=== PATIENT | female | born 1980 | race Caucasian/White ===

== ENCOUNTER 2017-06-15 16:41 | Outpatient (CLI) | payer BC | END 2017-06-15 16:42 | disposition home or self-care (01) | LOC: LABBT 16:41 | PROVIDERS: ATTEND Neurological Surgery | DX: Z01.812 Encounter for preprocedural laboratory examination (principal); M54.12 Radiculopathy, cervical region ==

== ENCOUNTER 2017-07-07 16:09 | Outpatient (CLI) | payer BC ==
--- NOTE | 2017-07-07 16:34 | RAD ---
CERVICAL SPINE FOUR VIEWS: 07/07/17 HISTORY: Neck pain. Prior surgery. FINDINGS: Anterior fixation hardware is in place at the C5-6 level without perihardware lucency. Metallic marke rs associated with interbody fusion material are within the confines of the disc space at the postope rative level. There is disc space narrowing at the C2-3 level. At the C4-5 level, there is disc space narrowing, mi nimal degenerative retrolisthesis, and osteophytosis that is most pronounced. Vertebral body heights are maintained. Cervicothoracic junction is intact. IMPRESSION: 1. Anterior operative fixation of the lower cervical spine without evidence of hardware complica tion. 2. Arthritic changes of the cervical spine are most pronounced at the C4-5 level, as detailed ab elliott. POS: [facility]
== END 2017-07-07 16:10 | disposition home or self-care (01) ==
LOC: TBSIIMAG 16:09
PROVIDERS: ATTEND Physician Assistant
DX: M54.2 Cervicalgia (principal); M47.812 Spondylosis without myelopathy or radiculopathy, cervical region; Z98.890 Other specified postprocedural states
CPT/HCPCS: 72040

== ENCOUNTER 2017-08-10 16:03 | Outpatient (CLI) | payer BC ==
--- NOTE | 2017-08-10 17:35 | RAD ---
FOUR VIEWS OF THE CERVICAL SPINE 08/10/17 COMPARISON: 07/07/17 HISTORY: Re-evaluate cervical spine following surgery, cervical spondylosis. FINDINGS: Anterior discectomy and fusion hardware is present at C5-6, stable. At C3-4 and C4-5, there is disc s pace narrowing with degenerative end plate change and mild anterior osteophyte formation, stable as w ell. No prevertebral soft tissue swelling is noted. There is no significant anterolisthesis or retrol isthesis. Open mouth odontoid view demonstrates a normal C1-2 articulation. Dens appears grossly unre markable on the provided Fuchs' view. No acute osseous abnormality is seen. IMPRESSION: Stable postoperative and degenerative changes within the cervical spine. POS: [facility]
== END 2017-08-10 16:04 | disposition home or self-care (01) ==
LOC: TBSIIMAG 16:03
PROVIDERS: ATTEND Neurological Surgery
DX: M47.812 Spondylosis without myelopathy or radiculopathy, cervical region (principal); Z98.1 Arthrodesis status
CPT/HCPCS: 72040

== ENCOUNTER 2018-03-15 11:02 | Outpatient (CLI) | payer BC ==
--- NOTE | 2018-03-15 12:51 | ULT ---
RIGHT UPPER QUADRANT ABDOMINAL ULTRASOUND AND HEPATIC ULTRASOUND: HISTORY: Elevated LFTs. TECHNIQUE: Multiplanar, ward scale, and color Doppler images were obtained in a right upper quadrant abdominal u ltrasound. Spectral analysis of the Doppler waveforms of the hepatic and splenic vasculature were pe rformed. FINDINGS: The liver is normal in echogenicity without focal lesions or intrahepatic ductal dilatation. The gal lbladder is normal without stones, sludge, gallbladder wall thickening, or pericholecystic fluid. Th e common bile duct is normal measuring 3 mm. Normal directional flow was seen within the hepatic and splenic vasculature which also demonstrate no rmal waveforms. The visualized portions of the pancreas are unremarkable. The spleen is normal in echogenicity witho ut focal lesions and measures 12.0 cm in length. The visualized portions of the pancreas are unremar kable. IMPRESSION: No significant right upper quadrant abdominal abnormality. POS: [facility]
== END 2018-03-15 11:03 | disposition home or self-care (01) ==
LOC: SCSULT 11:02
PROVIDERS: ATTEND Internal Medicine Gastroenterology
DX: R10.11 Right upper quadrant pain (principal); R74.0 Nonspecific elevation of levels of transaminase and lactic acid dehydrogenase [LDH]; R63.4 Abnormal weight loss; D49.7 Neoplasm of unspecified behavior of endocrine glands and other parts of nervous system; Z83.79 Family history of other diseases of the digestive system
CPT/HCPCS: 76705

== ENCOUNTER 2018-07-14 14:37 | Outpatient (CLI) | payer BC | END 2018-07-14 14:38 | disposition home or self-care (01) | LOC: BICMAMMO 14:37 | PROVIDERS: ATTEND Obstetrics & Gynecology | DX: Z12.31 Encounter for screening mammogram for malignant neoplasm of breast (principal); Z80.3 Family history of malignant neoplasm of breast | CPT/HCPCS: 77063; 77067 ==

== ENCOUNTER 2018-11-18 14:16 | Outpatient (CLI) | payer BC ==
--- NOTE | 2018-11-18 14:42 | RAD ---
Right ankle 2 views INDICATION: Unspecified ankle and foot pain without injury. This is ongoing for 5 days. Pain is predo minantly around the lateral and posterior ankle as well as the base of the fifth metatarsal. FINDINGS: No acute fracture or subluxation is evident. Visualized hindfoot appears within normal limi ts. Soft tissues are normal appearing. IMPRESSION: No acute osseous abnormality demonstrated.
--- NOTE | 2018-11-18 14:47 | RAD ---
Right foot 2 views INDICATION: Pain about the right ankle and right fifth metatarsal COMPARISON: None FINDINGS: No acute fracture or subluxation is evident. The Lisfranc alignment appears within normal l imits. Soft tissues are normal appearing. Slight increased density adjacent to the second metatarsal head may reflect a small sesamoid. This could also reflect a small bone island within the second metatarsal head. IMPRESSION: No acute osseous abnormality.
== END 2018-11-18 14:17 | disposition home or self-care (01) ==
LOC: BICRAD 14:16
PROVIDERS: ATTEND Family Medicine
DX: M25.571 Pain in right ankle and joints of right foot (principal); M79.671 Pain in right foot

== ENCOUNTER 2019-07-31 15:02 | Outpatient (CLI) | payer BC ==
[2019-07-31 16:55] LABS: #Basophils 0.1 thou/uL (0.0-0.2); #Eosinphils 0.1 thou/uL (0.0-0.7); #Lymphocytes 2.7 thou/uL (1.20-3.40); #Monocytes 0.6 thou/uL (0.11-0.59); #Neutrophils 4.1 thou/uL (1.40-6.50); %Basophils 1.1 % (0.0-1.0); %Eosinophils 1.6 % (0.0-10.0); %Lymphocytes 35.3 % (21.0-51.0); %Monocytes 7.9 % (0.0-10.0); %Neutrophils 54.1 % (42.0-75.0); Hemoglobin 13.6 g/dL (12.0-16.0); Mean Corpuscular HGB CONC 32.8 g/dL (32.0-36.0); Mean Corpuscular Hemoglobin 26.5 pg (27.0-31.0); Mean Corpuscular Volume 80.8 fL (78.0-98.0); Platelet Count 309 thou/uL (130-400); RBC Distribution Width 12.7 % (11.5-14.5); Red Blood Cell (RBC) Count 5.14 mill/uL (4.20-5.40); White Blood Cell (WBC) Count 7.6 thou/uL (4.8-10.8)
[2019-07-31 17:25] LABS: Anion Gap 12 mmol/L (10-20); BUN (Urea Nitrogen) 10 mg/dL (7.0-18.7); Calc. Creatinine Clearance 0 mL/min (70-130); Calcium 9.9 mg/dL (7.8-10.44); Carbon Dioxide 27 mmol/L (22-29); Chloride 102 mmol/L (98-107); Estimated GFR-MDRD 76; Glucose 81 mg/dL (70-105); Potassium 4.1 mmol/L (3.5-5.1); Sodium 137 mmol/L (136-145)
== END 2019-07-31 15:03 | disposition home or self-care (01) ==
LOC: LABBT 15:02
PROVIDERS: ATTEND Surgery
DX: Z01.812 Encounter for preprocedural laboratory examination (principal); N63.20 Unspecified lump in the left breast, unspecified quadrant
CPT/HCPCS: 80048; 85025

== ENCOUNTER 2019-08-02 06:23 | Day surgery (SDC) | payer BC ==
[2019-07-31 16:52] VITALS: BMI 31.6
[2019-08-02] MEDS ORDERED: Sodium Bicarbonate 2.5 MEQ/5 ML VIAL ONE (07:02)
--- NOTE | 2019-08-02 09:33 | ULT ---
Ultrasound-guided left breast needle localization: DATE: 08/02/2019 HISTORY: 39-year-old female with left retroareolar palpable lump. Original workup performed at [facility]. TECHNIQUE: Signed informed consent obtained. Left breast prepped and draped in usual sterile fashion. 25-gauge n eedle used to apply buffered lidocaine. 20-gauge 3 cm [place] needle advanced under ultrasound guidance from upper outer approach, into the area located superficially directly posterior to the are rufina. Wire deployed. Patient tolerated procedure well. No complications. IMPRESSION: Ultrasound-guided needle localization
[2019-08-02] MEDS ORDERED: Lidocaine 1% w/Epinephrine 1:100K 20 ML VIAL ONE (10:18)
[2019-08-02] MEDS ORDERED: Bupivacaine 0.25% HCL 30 ML VIAL ONE (10:18)
[2019-08-02] MEDS ORDERED: Fentanyl 100 MCG/2 ML VIAL ONE ×2 (10:28→12:25)
[2019-08-02] MEDS ORDERED: Midazolam HCl 2 mg/2 ml Vial ONE (10:28)
--- NOTE | 2019-08-02 12:01 | MMO ---
Radiograph surgical specimen: DATE: 08/02/2019 HISTORY: 39-year-old female status post left retroareolar breast lesion surgical excisional biopsy following u ltrasound-guided needle localization. FINDINGS: The [place] wire is present within the tissue specimen. Numerous punctate tiny microcalcific densities are present in the specimen, but this is artifact because the mammogram showed no such calcifications. Because the lesion is only visible on ultrasound, it is not possible to determine whe ther the targeted lesion is in the specimen, but it probably is unless though wire was manipulated. IMPRESSION: Status post left retroareolar surgical breast excisional biopsy.
[2019-08-02] MEDS ORDERED: PROPOFOL 200 MG/20 ML VIAL ONE (12:26)
[2019-08-02] MEDS ORDERED: Lidocaine 1% PF 5 ML VIAL ONE (12:26)
[2019-08-02] MEDS ORDERED: Ketorolac Tromethamine 30 MG/ML VIAL ONE (12:26)
[2019-08-02] MEDS ORDERED: Dexamethasone 20 MG/5 ML VIAL ONE (12:26)
[2019-08-02] MEDS ORDERED: Ondansetron PF 4 MG/2 ML Vial ONE (12:26)
[2019-08-02] MEDS ORDERED: PHENYLEPHRINE-NS 100 MCG/ML 10 ML SYRINGE ONE (12:26)
[2019-08-02] MEDS ORDERED: ePHEDrine/0.9% NaCl/PF SYRINGE 50 mg/10 ml ONE (12:26)
--- NOTE | 2019-08-02 13:55 | OP ---
DATE OF PROCEDURE: 08/02/2019 PROCEDURE PERFORMED: Left breast needle localized excisional biopsy. PREOPERATIVE DIAGNOSIS: Left breast retroareolar mass. POSTOPERATIVE DIAGNOSIS: Left breast retroareolar mass. INDICATIONS FOR PROCEDURE: Ms. Villanueva is a 39-year-old woman, who noticed a nodule in the retroareolar region of her left breast. On ultrasound, this had a suspicious appearance, and excisional biopsy was recommended due to its superficial location and small size. This can intermittently be difficult to palpate in her large breast, so needle localization was recommended. DESCRIPTION OF PROCEDURE: After informed consent was obtained, the patient was taken to the operating room and placed in supine position. A wire had been placed just anterior to the mass under ultrasound guidance in Radiology prior to the case. The patient was placed under anesthesia and prepped and draped in a standard sterile fashion including the wire and needle and the sterile prep. The wire was coming in from the lateral direction into the retroareolar area where the mass was located. Local anesthesia was infused to the areolar edge, and an incision was made. Dissection was carried down to the wire. Dissection was carried down around the wire beyond the tip excising the entire area posterior to the wire, and no point was the wire or the needle exposed in the area of concern, and there was a palpable mass in the specimen. The specimen was oriented with a long lateral short superior and looped superficial suture and was sent to specimen mammogram, where they confirmed that the area of concern had been excised. The wound was irrigated, and hemostasis was obtained using Bovie electrocautery. Additional local anesthesia was infused for postoperative pain control. The subcutaneous tissues were reapproximated with 3-0 Monocryl suture, and the skin was closed with 4-0 Monocryl suture. Dermabond dressings were placed, and once these were dry, a fluff compression dressing was placed. The patient was extubated and taken to Recovery in good condition. ESTIMATED BLOOD LOSS: Minimal. COMPLICATIONS: There were no complications. SPECIMEN: Left retroareolar mass. Job ID: [id number]
== END 2019-08-02 13:45 | disposition home or self-care (01) ==
LOC: SDC 06:23
PROVIDERS: ATTEND Surgery
PROC: 0H9U0ZX Drainage of Left Breast, Open Approach, Diagnostic (ICD-10-PCS; principal; 2019-08-02)
DX: N60.12 Diffuse cystic mastopathy of left breast (principal); F41.9 Anxiety disorder, unspecified; F32.9 Major depressive disorder, single episode, unspecified; E78.5 Hyperlipidemia, unspecified; Z79.899 Other long term (current) drug therapy; Z88.2 Allergy status to sulfonamides
CPT/HCPCS: 19285; 76098; 88307; 88341; 88342; J0690; J1100; J1885; J2001; J2250; J2405; J2704; J3010; S0020

== ENCOUNTER 2020-02-08 14:42 | Outpatient (CLI) | payer BC ==
--- NOTE | 2020-02-08 16:31 | MRI ---
MRI of thelumbar spine with and without contrast: 02/08/2020 COMPARISON:None available HISTORY:Lumbar radiculopathy, low back pain with bilateral lower extremity numbness, prior lumbar spi ne surgery TECHNIQUE: Multiplanar multisequence MR imaging of thelumbar spine with and without contrast Findings:Sagittal STIR imaging demonstrates no focal area of osseous marrow edema. There is no shane listhesis or retrolisthesis within the lumbar spine. On the basis of 5 lumbar type vertebral bodies, the conus medullaris terminates at the L1 level. T12-L1: No central canal or neural foraminal stenosis. L1-2: No central canal or neural foraminal stenosis. L2-3: No central canal or neural foraminal stenosis L3-4: No central canal or neural foraminal stenosis. L4-5: There is disc space narrowing with disc desiccation and mild disc bulge. Central annular tear. Mild bilateral facet hypertrophy. No significant central canal or neural foraminal stenosis. L5-S1: There is disc space narrowing with disc desiccation and disc bulge. Small superimposed left pa racentral and left foraminal disc protrusion. Moderate left lateral recess stenosis and severe left neural foraminal stenosis. Mild right neural foraminal stenosis. The imaged retroperitoneal structures appear unremarkable. The postcontrast imaging demonstrates no a bnormal enhancement involving the nerve roots of the cauda equina. There is mild enhancement of the anterior epidural space anteriorly/laterally at the L5-S1 level adjacent to the anterior margin of th e left S1 nerve root suggesting a degree of scar. No abnormal enhancement is seen involving the osseous structures. IMPRESSION:Degenerative changes within the lumbar spine, most prominent on the left at the L5-S1 leve l as detailed above. Probable mild scar along the anterior margin of the left S1 nerve root.
--- NOTE | 2020-02-08 16:47 | MRI ---
MRI of thecervical spine with and without contrast: 02/08/2020 COMPARISON:None available HISTORY:Neck pain, numbness, prior surgery TECHNIQUE: Multiplanar multisequence MR imaging of thecervical spine with and without contrast Findings:Anterior discectomy and fusion hardware present at the C5-6 level. The sagittal STIR imaging demonstrates no focal area of osseous marrow edema. Fusion of the occipital condyles and C1 ring noted. C2-3: No significant central canal or neural foraminal stenosis. C3-4: There is disc space narrowing and disc desiccation with mild disc bulge partially effacing the ventral thecal sac. No significant neural foraminal stenosis or central canal stenosis. Mild left neural foraminal stenosis on the basis of facet and uncovertebral osteophyte formation noted. C4-5: There is disc space narrowing with disc desiccation and mild disc bulge. There is partial effac ement of the ventral thecal sac with mild central canal stenosis. Prominent bilateral uncovertebral osteophyte formation noted with moderate/severe bilateral neural foraminal stenosis, left greater ramesh n right. C5-6: Detailed assessment is limited secondary to postoperative change. No significant central canal stenosis. Probable mild bilateral neural foraminal stenosis on the basis of facet and uncovertebral osteophyte formation, left greater than right. C6-7: There is disc space narrowing with disc desiccation and mild disc bulge partially effacing the ventral thecal sac and causing mild central canal stenosis. Bilateral uncovertebral osteophyte formation with mild bilateral neural foraminal stenosis, left greater than right. C7-T1: No significant central canal or neural foraminal stenosis. No abnormal signal intensity is identified within the cervical cord. The postcontrast imaging demonstrates no abnormal enhancement. IMPRESSION:Postoperative and degenerative changes within the cervical spine as detailed above. The mo st significant stenosis involves bilateral neural foramina at C4-5, left greater than right.
== END 2020-02-08 14:43 | disposition home or self-care (01) ==
LOC: BICMRI 14:42
PROVIDERS: ATTEND Neurological Surgery
DX: M47.26 Other spondylosis with radiculopathy, lumbar region (principal); M54.6 Pain in thoracic spine; M50.30 Other cervical disc degeneration, unspecified cervical region; M47.812 Spondylosis without myelopathy or radiculopathy, cervical region; M48.02 Spinal stenosis, cervical region; M47.27 Other spondylosis with radiculopathy, lumbosacral region; Z98.890 Other specified postprocedural states
CPT/HCPCS: 72156; 72158

== ENCOUNTER 2020-02-09 15:22 | Outpatient (CLI) | payer BC ==
[~2020-02-09 15:22] MED LIST: Magnevist 469MG/ML 20 ML VIAL ONE
--- NOTE | 2020-02-09 15:51 | RAD ---
XR Cerv Sp Ap Lat STANDARD History: Cervical disc degeneration Comparison: Cervical spine MRI prior day Findings: Moderate C3/C4 and C4/C5 degenerative disc degeneration and osteophyte formation along with C6/C7 disc space height loss. Grade 1 C4 over C5 retrolisthesis approximately 3 mm. Intact ACDF hardware. Impression: Multilevel spondylosis, greatest at C4/C5 with grade 1 degenerative retrolisthesis.
--- NOTE | 2020-02-09 16:49 | MRI ---
MRI Thoracic Spine W WO Con History: Thoracic spine pain. M [age] Comparison: Multiple prior thoracic spine MRI examinations, most recent study 2014 Findings: No marrow infiltrative process. Laminectomy change of T6-T8. Likely left hemifacetectomy at T7/T8 with adjacent scar tissue which does cause moderate neural foraminal narrowing. Mild disc desiccation at T4/T5 and T7/T8. No spinal canal narrowing. No hydronephrosis. Aortic contour is normal. Impression: 1. Findings of left hemifacetectomy changes on the left at T7/T8 with adjacent scar causing moderate neural foraminal narrowing. 2. No acute disc protrusion/bulge. No other levels of neural foraminal narrowing. 3. No spinal canal narrowing. 4. Normal signal of the cord. No abnormal enhancement. 5. No abnormal enhancing dural based mass.
== END 2020-02-09 15:23 | disposition home or self-care (01) ==
LOC: BICMRI 15:22
PROVIDERS: ATTEND Neurological Surgery
DX: M50.30 Other cervical disc degeneration, unspecified cervical region (principal); M54.6 Pain in thoracic spine; M47.812 Spondylosis without myelopathy or radiculopathy, cervical region; M43.12 Spondylolisthesis, cervical region; M48.04 Spinal stenosis, thoracic region; Z98.890 Other specified postprocedural states
CPT/HCPCS: 72040; 72157

== ENCOUNTER 2021-07-17 16:30 | Outpatient (CLI) | payer BC | END 2021-07-17 16:31 | disposition home or self-care (01) | LOC: SLEEPLAB 16:30 | PROVIDERS: ATTEND Psychiatry & Neurology Neurology | DX: G47.33 Obstructive sleep apnea (adult) (pediatric) (principal) | CPT/HCPCS: 95806 ==

== ENCOUNTER 2023-08-10 16:13 | Outpatient (CLI) | payer BC | END 2023-08-10 16:14 | disposition home or self-care (01) | LOC: BICRAD 16:13 | PROVIDERS: ATTEND Family Medicine | DX: M19.071 Primary osteoarthritis, right ankle and foot (principal); M79.89 Other specified soft tissue disorders ==

== ENCOUNTER 2023-12-08 15:01 | Outpatient (CLI) | payer BC | END 2023-12-08 15:02 | disposition home or self-care (01) | LOC: BICMRI 15:01 | PROVIDERS: ATTEND Psychiatry & Neurology Neurology | DX: R51.9 Headache, unspecified (principal) | CPT/HCPCS: 70553 ==

== ENCOUNTER 2024-01-07 09:32 | Outpatient (CLI) | payer BC | END 2024-01-07 09:33 | disposition home or self-care (01) | LOC: BICMAMMO 09:32 | PROVIDERS: ATTEND Family Medicine | DX: Z12.31 Encounter for screening mammogram for malignant neoplasm of breast (principal); Z80.3 Family history of malignant neoplasm of breast | CPT/HCPCS: 77063; 77067 ==